=== PATIENT | female | born 1990 | race Caucasian/White ===

== ENCOUNTER 2021-12-17 09:47 | Emergency (ER) | payer OTHER, SELFPAY ==
[2021-12-17 10:08] VITALS: BP 105/69; PULSE 76; RESP 16; TEMP 36.8; O2SAT 100
--- NOTE | 2021-12-17 10:41 | ED.URI ---
HPI - URI/Sore Throat General Chief Complaint: Upper Respiratory Infection Stated Complaint: chest and head congestion Time Seen by Provider: 12/17/21 10:10 Source: patient Mode of arrival: ambulatory Limitations: no limitations History of Present Illness HPI Narrative: Ms. Morley is a 31-year-old female patient presenting to the clinic today with complaints of chest and head congestion x2 weeks. She reports she is bringing up some yellowish-green phlegm when she is coughing. States is worse in the morning. She denies any chest pain or shortness of breath but does feel as though her chest is rattly. She denies any known exposure to anyone with COVID, flu, or strep. Has taken 2 at home COVID test and they were both negative. MD elicited complaint: sore throat and nasal congestion Related Data Allergies Allergy/AdvReac Type Severity Reaction Status Date / Time No Known Allergies Allergy Verified 12/17/21 10:30 Review of Systems Review of Systems: Pertinent positives per HPI. Patient denies any fever, chills, rash, visual changes, dizziness, shortness of breath, chest pain, palpitations, nausea, vomiting, diarrhea, constipation, abdominal pain, or any urinary issues. PMFSH Comments At the time of my signature, I reviewed and agree with the nursing past medical, surgical, social, and family history. There is no relevant family history pertinent to the patient complaint. Exam Narrative: General: Well-developed, well nourished, in no apparent distress Head: Normocephalic, atraumatic Eyes: Pupils equally round and reactive to light bilaterally, EOM intact, sclera and conjunctive clear, no discharge, lids normal Ears: TMs intact and dull, ear canals clear, no drainage, grossly hearing normal. Nose: Nares patent, clear nasal discharge, severe inflammation, frontal and maxillary sinus tenderness. Mouth: Oral pharynx without lesions or masses, good dentition, MMM. Postnasal drip Neck: Supple, trachea midline, no enlargement of anterior or posterior cervical nodes, no thyroid masses or goiter palpable. Cardio: Regular rate and rhythm, s1 and s2 normal, no murmur appreciated. Resp: Clear to auscultation bilaterally, no rhonchi, rales, wheezing or rubs Course Course Emergency Course: Portions of this record may have been created with voice recognition software. Level of Care: Express Care Visit Vital Signs Vital signs: Vital Signs Temperature 36.8 C 12/17/21 10:08 Pulse Rate 76 12/17/21 10:08 Respiratory Rate 16 12/17/21 10:08 Blood Pressure 105/69 12/17/21 10:08 Pulse Oximetry 100 12/17/21 10:08 Oxygen Delivery Room Air 12/17/21 10:08 Temperature 36.8 C 12/17/21 10:08 Pulse Rate 76 12/17/21 10:08 Respiratory Rate 16 12/17/21 10:08 Blood Pressure 105/69 12/17/21 10:08 Pulse Oximetry 100 12/17/21 10:08 Oxygen Delivery Room Air 12/17/21 10:08 Vital signs reviewed MDM - URI/Sore Throat MDM Narrative Medical decision making narrative: At the time of visit patient is resting comfortably on the exam table. I suspect the patient has acute rhinosinusitis and bronchitis. Supportive measures were discussed with the patient she voiced understanding of discharge instructions and agrees to treatment plan. Prescriptions were sent over for Augmentin, prednisone, and Diflucan as she does get vaginal yeast infections with antibiotic use. Differential Diagnosis Differential diagnosis: Likely upper respiratory infection, otitis media, sinusitis, viral infection, bronchitis, influenza, pharyngitis and other (COVID) Discharge Plan Discharge Clinical Impression: Acute bacterial rhinosinusitis, Bronchitis Patient Disposition: Home, Self-Care Condition: Stable Instructions: Antibiotic Form, Acute Bronchitis (ED), Rhinosinusitis (ED) Additional Instructions: Take prescription medications only as prescribed-Augmentin and prednisone Increase fluids and stay well hydrated Dariel
== END 2021-12-17 10:47 | disposition home or self-care (01) ==
PROVIDERS: Emergency Provider Nurse Practitioner Family
DX: J01.90 Acute sinusitis, unspecified (principal); J40 Bronchitis, not specified as acute or chronic
CPT/HCPCS: 99203; G0463

== ENCOUNTER 2023-01-11 12:21 | Emergency (ER) | payer OTHER, SELFPAY ==
[2023-01-11 12:26] VITALS: BP 119/50; PULSE 85; RESP 18; TEMP 36.3; O2SAT 96
--- NOTE | 2023-01-11 12:43 | ED.URI ---
HPI - URI/Sore Throat General Chief Complaint: Upper Respiratory Infection Stated Complaint: cough/chest burning Time Seen by Provider: 01/11/23 12:30 Source: patient Mode of arrival: ambulatory Limitations: no limitations History of Present Illness HPI Narrative: Charli is a 32-year-old female patient presenting to the clinic today with complaints of sinus congestion, cough, and chest burning with coughing. She denies any shortness of breath or chest pain. States he symptoms have been going on for approximately 2 weeks now. No fever or chills. MD elicited complaint: cough, rhinorrhea, nasal congestion and sinus pain Related Data Allergies Allergy/AdvReac Type Severity Reaction Status Date / Time No Known Allergies Allergy Verified 12/17/21 10:30 Review of Systems Review of Systems: Pertinent positives per HPI. Patient denies any fever, chills, rash, visual changes, dizziness, shortness of breath, chest pain, palpitations, nausea, vomiting, diarrhea, constipation, abdominal pain, or any urinary issues. PMFSH Comments At the time of my signature, I reviewed and agree with the nursing past medical, surgical, social, and family history. There is no relevant family history pertinent to the patient complaint. Exam Narrative: General: Well-developed, well nourished, in no apparent distress Head: Normocephalic, atraumatic Eyes: Pupils equally round and reactive to light bilaterally, EOM intact, sclera and conjunctive clear, no discharge, lids normal Ears: TMs intact and clear, ear canals clear, no drainage, grossly hearing normal. Nose: Nares patent, green nasal discharge, moderate inflammation, maxillary and frontal sinus tenderness. Mouth: Oral pharynx without lesions or masses, good dentition, MMM. Neck: Supple, trachea midline, no enlargement of anterior or posterior cervical nodes, no thyroid masses or goiter palpable. Cardio: Regular rate and rhythm, s1 and s2 normal, no murmur appreciated. Resp: Mild expiratory wheezing otherwise clear, no rhonchi, rales, wheezing or rubs Course Course Emergency Course: Portions of this record may have been created with voice recognition software. Level of Care: Express Care Visit Vital Signs Vital signs: Vital Signs Temperature 36.3 C L 01/11/23 12:26 Pulse Rate 85 01/11/23 12:26 Respiratory Rate 18 01/11/23 12:26 Blood Pressure 119/50 L 01/11/23 12:26 Pulse Oximetry 96 01/11/23 12:26 Oxygen Delivery Room Air 01/11/23 12:26 Temperature 36.3 C L 01/11/23 12:26 Pulse Rate 85 01/11/23 12:26 Respiratory Rate 18 01/11/23 12:26 Blood Pressure 119/50 L 01/11/23 12:26 Pulse Oximetry 96 01/11/23 12:26 Oxygen Delivery Room Air 01/11/23 12:26 Vital signs reviewed MDM - URI/Sore Throat MDM Narrative Medical decision making narrative: At the time of visit patient is resting comfortably on exam table. Patient is nontoxic appearing. i suspect patient has sino bronchitis. Prescription for Augmentin, prednisone, albuterol inhaler, and Diflucan was sent to the pharmacy. Supportive measures were discussed with the patient she voiced understanding of discharge instructions agrees to treatment plan. Differential Diagnosis Differential diagnosis: Likely upper respiratory infection, otitis media, sinusitis, viral infection, bronchitis, influenza, pharyngitis and other (COVID) Discharge Plan Discharge Clinical Impression: Sinobronchitis Patient Disposition: Home, Self-Care Condition: Stable Instructions: Antibiotic Form, Acute Bronchitis (ED), Rhinosinusitis (ED) Additional Instructions: Take prescription medications only as prescribed-albuterol inhaler, prednisone, and Augmentin Will send in prescription for Diflucan if needed for vaginal yeast infection Increase fluids and stay well hydrated Tylenol/motrin for pain/fever Flonase and OTC antihistamines as directed Vicks vapor rub to open sinuses Sinus rinses
== END 2023-01-11 12:56 | disposition home or self-care (01) ==
PROVIDERS: Emergency Provider Nurse Practitioner Family
DX: J32.9 Chronic sinusitis, unspecified (principal); J40 Bronchitis, not specified as acute or chronic
CPT/HCPCS: 99213; G0463